=== PATIENT | female | born 1980 | race Caucasian/White ===

== ENCOUNTER → 2017-06-18 | Outpatient (CLI) | payer BC ==
--- NOTE | 2017-06-18 14:39 | CT ---
HISTORY: Persistent headaches, allergic rhinitis Study: CT sinuses without contrast Comparison: None Technique: Axial non contrast images with coronal and sagittal reformats. Dose reduction procedures were used with MA/kv adjusted for body size. Findings: The frontal, ethmoid, sphenoid, and maxillary sinuses are clear. There is rightward nasal septal dev iation present. Bilateral taylor bullosa is present. The ostiomeatal complexes are patent. The middl e ear spaces and mastoid air cells are clear. IMPRESSION: Clear paranasal sinuses Rightward nasal septal deviation. Bilateral taylor bullosa Reported By:
--- NOTE | 2017-06-18 14:41 | CT ---
HISTORY: Persistent headaches, visual discomfort Study: CT head without contrast Comparison: None Technique: axial non contrast images with coronal and sagittal reformats. Dose reduction procedures were used with MA/kv adjusted for body size. Findings: The ventricles are normal in size shape and position. There are no areas of abnormal attenuation to suggest recent or remote CVA, hemorrhage, mass lesion, or extra-axial fluid collection. Those sinuse s visualized were clear. The globes are intact. The retro orbital soft tissues are normal. The timbo rium is intact. IMPRESSION: No significant abnormality identified Reported By:
== END ==
LOC: RAD 14:09
PROVIDERS: ATTEND Nurse Practitioner Family
DX: G44.52 New daily persistent headache (NDPH) (principal); H53.143 Visual discomfort, bilateral; J30.89 Other allergic rhinitis
CPT/HCPCS: 70450; 70486